=== PATIENT | female | born 1990 | race African-American/Black ===

== ENCOUNTER 2017-02-17 | Inpatient (IN) | payer OTHER ==
--- NOTE | ~2017-02-17 | HP ---
Unit #: [id number] #: [id number] Patient: FAYE LORD [id number] [place] [address] [id number] I MR#: [id number] NAME: FAYE LORD ROOM: 12 Age: 26 Sex: F Admission Date: 02/17/2017 : 1990 Attending Physician: Johnson Mitchell M.D. Admitting Physician: Johnson Mitchell M.D. Primary Care Physician: Primary Care Physician No HISTORY AND PHYSICAL HISTORY OF PRESENT ILLNESS Faye is a 26 year old admitted to [address] [place] [address] with psychotic behavior. She refuses to answer any questions so her history is taken from her chart. Exam is limited. PAST MEDICAL HISTORY Nothing significant. PAST SURGICAL HISTORY Nothing reported. ALLERGIES No known drug allergies. SOCIAL HISTORY Smokes 1 pack per day. Denies alcohol and illicit drug use. FAMILY HISTORY Medically not known. REVIEW OF SYSTEMS She refuses to answer any questions. There are no reports of nausea, vomiting or diarrhea. She has had no cough or increased temperature. CURRENT MEDICATIONS 1. Risperdal 2 mg b.i.d. 2. Milk of Magnesia p.r.n. 3. Maalox p.r.n. 4. Tylenol p.r.n. PHYSICAL EXAMINATION GENERAL: Alert, well-nourished, in no apparent distress. VITAL SIGNS: Blood pressure 110/72, heart rate 80, respirations 16, temperature 98.6. WEIGHT: 184. HEIGHT: 5 feet 5 inches. SKIN: Patient refuses. HEENT: Patient refuses. NECK: Patient refuses. HEART: Rate and rhythm is regular. LUNGS: Patient refuses. ABDOMEN: Soft, nontender. : Not done. Unit #: [id number] #: [id number] Patient: FAYE LORD EXTREMITIES: Moves all without focal deficit. Gait normal. NEUROLOGICAL: Patient refuses. IMPRESSION Psychiatric admission. RECOMMENDATIONS PSYCHIATRIC: Per psychiatrist. MEDICAL: See no contraindication to participate in facility's activities. MEDICAL PROGNOSIS Good. MEDICAL CONDITION Stable. Dictated by... Leonor Rabago P.A.-C. for Kary Malik M.D. YONG/carline TD: 02/17/2017 18:56 JOB #: [id number] HISTORY AND PHYSICAL Page 1 of 1 X Leonor Rabago HISTORY AND PHYSICAL
--- NOTE | ~2017-02-17 | PN ---
Unit #: [id number] #: [id number] Patient: SANYA LORD [id number] [facility] [address] [place] [address] [id number] MR#: [id number] NAME: SANYA LORD ROOM: 12 Age: 26 Sex: F Admission Date: 02/17/2017 : 1990 Attending Physician: Johnson Mitchell M.D. Admitting Physician: Johnson Mitchell M.D. Primary Care Physician: Primary Care Physician Eloisa SEVILLA NOTES DATE OF SERVICE: 02/21/2017 SUBJECTIVE The patient was seen and assessed on 02/21/2017. Upon today's assessment, the patient was found at bed. She was resting comfortably and appeared in a deep sleep and was very difficult to arouse. Upon getting her to respond, she stated, "I'm fine and just wanted to rest at that time." Discussed with staff. No issues with behavioral problems noted at this time. We will continue to monitor her q.15 minutes for safety. Staff reports medication compliance. Dictated by... BHARATH Jarvis/sanya TD: 02/23/2017 23:29 JOB #: [id number] WILDA SEVILLA NOTES Page [address] SHOEM[address]ER NOTE
--- NOTE | ~2017-02-17 | PA ---
Unit #: [id number] #: [id number] Patient: SANYA LORD [id number] [place] [address] [id number] Dante MR#: [id number] NAME: SANYA LORD ROOM: P112 Age: 26 Sex: F Admission Date: 02/17/2017 : 1990 Date of Assessment: Attending Physician: Johnson Mitchell M.D. Admitting Physician: Johnson Mitchell M.D. Primary Care Physician: Primary Care Physician No PSYCHIATRIC ASSESSMENT DATE OF SERVICE 02/18/2017. INFORMANTS The patient, reliable; OLOP, reliable. CHIEF COMPLAINT "I'm SI and HI." HISTORY OF PRESENT ILLNESS Ms. Sanchez is a 26-year-old woman with a history of admission to this facility, who reports noncompliance with treatment and homicidal ideation toward "anyone that messes with me." She had a rather nonspecific presentation otherwise and refused to answer multiple questions in the assessment center. She was unwilling to contract for safety and was readmitted. PAST PSYCHIATRIC HISTORY This is Ashok's fourth admission to this facility. She has a history of taking Risperdal Consta, but has been noncompliant. FAMILY PSYCHIATRIC HISTORY Noncontributory. SOCIAL HISTORY The patient appears to be homeless, but will not answer questions regarding her psychosocial support. PAST MEDICAL HISTORY No chronic medical problems. MEDICATIONS None currently. ALLERGIES No known medication allergies. SUBSTANCE USE HISTORY The patient apparently smokes, but has no history of chemical dependence. MENTAL STATUS EXAMINATION Ashok presented as a mildly disheveled woman, who mainly hid under the sheets during my assessment and spoke only rarely. It was difficult to Unit #: [id number] #: [id number] Patient: SANYA LORD assess if she was sleeping heavily or simply ignoring my requests for an interview. Staff reported she had been angry, entitled, and vaguely threatening during her initial assessment. I will attempt further mental status examinations when the patient is willing to participate. She appears hostile and psychotic based on the assessment and my initial assessment. ASSETS AND LIABILITIES The patient is in general good health and is coming involuntarily for treatment. Liabilities include noncompliance with treatment and noncompliance with assessment. ADMITTING DIAGNOSES AXIS I: Schizophrenia, paranoid type. AXIS II: None acute. AXIS III: None acute. AXIS IV: AXIS V: PSYCHIATRIC PLAN The patient was admitted and placed on psychosis precautions. At this point, we will explore her need for Risperdal Consta and I will begin Risperdal oral 2 mg b.i.d. as an empiric replacement. She will enroll in psychotherapy groups and activities, and a physical examination and laboratory studies will be ordered and reviewed. TREATMENT GOALS Resolution of psychosis, improvement in insight, and improvement in coping skills. [facility] ESTIMATED LENGTH OF STAY 5 days. Dictated by... Johnson Mitchell M.D. [facility]/sanya TD: 03/06/2017 03:33 JOB #: [id number] PSYCHIATRIC ASSESSMENT Page 1 of 1 X Johnson Mitchell MD X PSYCHIATRIC ASSESSMENT
--- NOTE | ~2017-02-17 | PN ---
Unit #: [id number] #: [id number] Patient: [facility] LORD [id number] [facility] [address] [place] [address] [id number] Dante MR#: [id number] NAME: SANYA LORD ROOM: 12 Age: 26 Sex: F Admission Date: 02/17/2017 : 1990 Attending Physician: Johnson Mitchell M.D. Admitting Physician: Johnson Mitchell M.D. Primary Care Physician: Primary Care Physician Eloisa ASTUDILLO PROGRESS NOTES DATE February 20, [address] Johnson Mitchell at [facility] DISCUSSION Upon today's assessment, the patient was found abed, she reports "I feel out of my mind, I know I'm having thoughts that are not true," and she goes on to state, "I think that I put everything into stores, I feel like my mom is still alive, and she has been for many years." She goes, "I feel like everything I'm living is a lie," and she thinks that she built [facility]. She goes on to say, "you know I'm having these thoughts that continually play and I know they are not true." At this time her speech is pressured and she is cooperative and compliant with this assessment and reports that she looks forward to talking to Dr. Mitchell on Wednesday. Plan is to continue to monitor this patient every fifteen minutes for safety, and encourage medication compliance. Dictated by... BHARATH Jarvis TD: 02/24/2017 05:29 JOB #: [id number] [facility] PROGRESS NOTES Page [address] SHOEMAKER PROGRESS NOTE
--- NOTE | ~2017-02-17 | DS ---
Unit #: [id number] #: [id number] Patient: FAYE LORD [id number] [place] [address] [id number] I MR#: [id number] NAME: FAYE LORD ROOM: 12 Age: 26 Sex: F Admission Date: 02/17/2017 : 1990 Discharge Date: 02/25/2017 Attending Physician: Johnson Mitchell M.D. Primary Care Physician: Primary Care Physician No DISCHARGE SUMMARY REASON FOR ADMISSION Faye is a 26-year-old woman with a history of schizophrenia, who has been noncompliant with her long-acting injectable outside of the hospital. She came in an acutely psychotic and hostile state and was admitted for stabilization after reporting thoughts of self-harm based on auditory hallucinations. LABORATORY DATA Please see hospital chart. HOSPITAL COURSE The patient was admitted and placed on psychosis precautions. We attempted to ascertain the last date of her Risperdal Consta injection, and in the interim, restarted oral Risperdal 2 mg b.i.d. The patient was compliant with this medication, although it took several days for her to begin to cooperate with the assessment. She tended to stay in bed with covers over her face and was selectively mute at times. She declined to reinitiate Risperdal Consta injections despite my encouragement, but did show some improvement with oral risperidone. Due to sedation, the dose was eventually changed from 2 mg b.i.d. to 4 mg only at bedtime, which was successful. On the date of discharge, she was less hostile, but still mildly paranoid; however, she denied suicidal ideation, intent, or plan. We were unsuccessful in convincing her to restart Risperdal Consta injections. DISCHARGE DIAGNOSES AXIS I: Schizophrenia, paranoid type. AXIS II: No diagnosis. AXIS III: None. AXIS IV: AXIS V: DISCHARGE INSTRUCTIONS Follow up with [facility]. DISCHARGE MEDICATIONS Risperidone 4 mg at bedtime for psychosis. CONDITION AT DISCHARGE Improved. PROGNOSIS Unit #: [id number] #: [id number] Patient: FAYE LORD Fair to good if the patient maintains compliance and followup. DIET AND ACTIVITY Ad martine. Dictated by... Johnson Mitchell M.D. [facility]/sanya TD: 03/06/2017 03:08 JOB #: [id number] DISCHARGE SUMMARY Page 1 of 1 X Johnson Mitchell MD DISCHARGE SUMMARY
== END 2017-02-25 13:15 | DRG 885 ==
LOC: P1S 01:43
DX: F20.0 Paranoid schizophrenia (principal); Z91.14 Patient's other noncompliance with medication regimen; F17.210 Nicotine dependence, cigarettes, uncomplicated